=== PATIENT | female | born 1955 | race Caucasian/White ===

== ENCOUNTER 2021-02-20 19:46 | Emergency (ER) | payer OTHER ==
[~2021-02-20] VITALS: Ht 162.6 cm; Wt 77.1 kg
[2021-02-20] MEDS ORDERED: SIMVASTATIN20 MG PO (20:27)
[2021-02-20] MEDS ORDERED: METOPROLOL SUCC25 MG PO (20:27)
[2021-02-20] MEDS ORDERED: LEVOTHYROXINE125 MCG PO (20:27)
[2021-02-20] MEDS ORDERED: LAMICTAL5 MG PO (20:29)
[2021-02-20] MEDS ORDERED: HYDROXYZINE PAM25 MG PO (20:30)
[2021-02-20] MEDS ORDERED: LEVOFLOXACIN500 MG PO (23:19)
[2021-02-20] MEDS ORDERED: FLAGYL500 MG PO (23:19)
[2021-02-20] MEDS ORDERED: HYDROCODON-ACE1 EA10 PO (23:19)
== END 2021-02-20 23:36 | disposition home or self-care (01) ==
LOC: ED 19:46
DX: K57.32 Diverticulitis of large intestine without perforation or abscess without bleeding (principal); F17.200 Nicotine dependence, unspecified, uncomplicated; Z79.899 Other long term (current) drug therapy
CPT/HCPCS: 74177; 80053; 81001; 83690; 85025; 99284-25; J1885; Q9967

== ENCOUNTER 2021-05-26 19:05 | Emergency (ER) | payer OTHER ==
[~2021-05-26] VITALS: Ht 162.6 cm; Wt 75.8 kg
[~2021-05-26 19:05] MED LIST: FLAGYL500 MG PO; HYDROCODON-ACE1 EA10 PO; HYDROXYZINE PAM25 MG PO; LAMICTAL5 MG PO; LEVOFLOXACIN500 MG PO; LEVOTHYROXINE125 MCG PO; METOPROLOL SUCC25 MG PO; SIMVASTATIN20 MG PO
--- OUTSIDE RECORDS SUMMARY | 2021-05-26 19:08 | XMS ---
PreManage Notification: MELLISA HERBERT Security Consumer Relations Specialist Events No recent Security Events currently on file CRITERIA MET - [facility] PROVID[facility] JANUARY RODRIGUEZ [facility] Current PHONE: [phone] Eamon has no Care Guidelines for this patient. [facility] VISIT COUNT (12 MO.) Helena Staton TOTAL 2 NOTE: Visits indicate total known visits. ED/UCC VISIT TRACKING (12 MO.) 05/26/2021 19:06 [facility] TYPE: Emergency COMPLAINT: - ABDOMINAL PAIN 02/20/2021 19:47 [facility] TYPE: Emergency COMPLAINT: - ABD PAIN DIAGNOSES: - Generalized abdominal pain - Other snf (current) drug therapy - Nicotine dependence, unspecified, uncomplicated - Diverticulitis of large intestine without perforation or abscess without bleeding INPATIENT VISIT TRACKING (12 MO.) No inpatient visits to display in this time frame [email or web address]
[2021-05-26] MEDS ORDERED: CIPROFLOXACIN500 MG PO (19:47)
== END 2021-05-26 23:10 | disposition home or self-care (01) ==
LOC: ED 19:05
DX: R10.31 Right lower quadrant pain (principal); E78.00 Pure hypercholesterolemia, unspecified; F17.200 Nicotine dependence, unspecified, uncomplicated; Z79.899 Other long term (current) drug therapy
CPT/HCPCS: 74177; 80053; 81001; 83690; 85025; 99284-25; Q9967